=== PATIENT | male | born 1955 | race Caucasian/White ===

== ENCOUNTER → 2018-01-29 06:42 | Outpatient (CLI) | payer BC, OTHER, SELFPAY ==
--- NOTE | 2018-01-29 10:46 | NEURO ---
NCS and/or EMG Patient Report Ordering Doctor: Haley Tsang DATE OF SERVICE: 01/29/18 This is a bilateral upper extremity nerve conduction study and a right upper extremity EMG performed on this 62-year-old right-handed male with symptoms affecting all fingers of both hands relatively symmetrically over the past 2 years. He reports that his hands and arms fall asleep during the night. Bilateral upper extremity sensory and motor nerve conduction studies performed demonstrating moderate prolongation of the median motor and sensory distal latencies with mild reduction of motor amplitudes and mild reduction of conduction velocity primarily on the left side. The ulnar motor and sensory and radial sensory sponsors are preserved. The median F-wave latencies are mildly prolonged bilaterally. Right upper extremity needle electromyography is performed. Muscles evaluated included the first dorsal interosseous, abductor pollicis brevis, brachioradialis, biceps, triceps and deltoid muscles. All muscles demonstrated normal insertional activity with absence of pathologic spontaneous activity. Motor unit potential recruitment pattern and amplitude was normal in all muscles tested. Impression: Abnormal electrophysiologic study of the upper extremities consistent with moderate to severe carpal tunnel syndrome bilaterally, electrically somewhat worse on the right side.
--- NOTE | 2018-01-29 10:58 | NEURO ---
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 Apparently she had neurophysiologic testing at age 9. She describes difficulty with the small muscles in her right foot. When she was a child her right shoe would slip off of her foot and she does trip occasionally. On examination, there does not appear to be any muscle atrophy in the right lower extremity, reflexes are intact. Bilateral lower extremity sensory and motor nerve conduction studies performed. The right sural sensory response is absent on the left side it is normal. The peroneal motor and tibial motor distal latencies amplitudes and conduction velocities are preserved bilaterally and the superficial peroneal sensory and medial plantar responses bilaterally are intact. Tibial and peroneal F-wave latencies are normal. There is mild reduction of the left tibial H reflex response of unclear clinical significance. Right lower extremity needle electromyography is performed. Muscles evaluated included the extensor digitorum brevis abductor hallucis, medial gastrocnemius, anterior tibialis, vastus medialis and vastus lateralis. There was no response from the small muscles of the feet. More proximal muscles were normal. Abnormal insertional activity was absent, and otherwise motor unit potential recruitment pattern and amplitude was normal. 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 There is also muscle atrophy of the small muscles of the foot. This is somewhat complicated by limited patient effort during examination. There is no evidence of radiculopathy. May represent a congenital neuropathy, or possibly PHOTOGR[employer] EQUIPMENT MECHANIC injury despite the absence of upper motor neuron findings.
--- NOTE | 2018-01-29 11:16 | NEURO_ITS ---
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 Apparently she had neurophys iologic testing at age 9. She describes difficulty with the small muscles in her right foot. When she was a child her right shoe would slip off of her foot and she does trip occasionally. On examination, there does not appear to be any muscle atrophy in the right lower extremity, reflexes are intact. Bilateral lower extremity sensory and motor nerve conduction studies performed. The right sural sensory response is absent on the left side it is normal. The peroneal motor and tibial motor distal latencies amplitudes and conduction velocities are preserved bilaterally and the superficial peroneal sensory and medial plantar responses bilaterally are intact. Tibial and peroneal F-wave latencies are normal. There is mild reduction of the left tibial H reflex response of unclear clinical significance. Right lower extremity needle electromyography is performed. Muscles evaluated included the extensor digitorum brevis abductor hallucis, medial gastrocnemius, anterior tibialis, vastus medialis and vastus lateralis. There was no response from the small muscles of the feet. More proximal muscles were normal. Abnormal insertional activity was absent, and otherwise motor unit potential recruitment pattern and amplitude was normal. 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 There is also muscle atrophy of the small muscles of the foot. This is somewhat complicated by limited patient effort during examination. There is no evidence of radiculopathy. May represent a congenital neuropathy, or possibly DISTRESSER injury despite the absence of upper motor neuron findings.
== END ==
PROVIDERS: Family Provider Internal Medicine Infectious Disease; PCP Internal Medicine Infectious Disease; Referring Provider Internal Medicine Infectious Disease; Visit Provider Internal Medicine Infectious Disease
DX: M79.601 Pain in right arm (principal); M79.602 Pain in left arm
CPT/HCPCS: 95886; 95911